=== PATIENT | male | born 1945 | race Caucasian/White ===

== ENCOUNTER → 2019-01-16 10:13 | Outpatient (CLI) | payer MEDICARE, OTHER, SELFPAY ==
--- NOTE | 2019-01-16 | DI.RAD.S_ITS ---
PROCEDURE: XR KNEE RT 3V INDICATIONS: RIGHT KNEE PAIN OSTEOARTHRITIS TECHNIQUE: 3 views of the knee were acquired. COMPARISON: None. FINDINGS: Bones: No fractures or dislocations but there is a moderately severe degree of degenerative change at the right knee, most prominent at the lateral facet of the patellofemoral joint and moderately severe at the lateral compartment of the knee. The medial compartment shows mild degenerative osteoarthritic joint space thinning. No suspicious bony lesions. Soft tissues: No joint effusion. No suspicious soft tissue calcifications. IMPRESSION: No trauma found that there is severe arthritis at the patellofemoral joint lateral compartment, and moderately severe degeneration at the lateral compartment of the right knee on the frontal weight bearing view. Dictated by: Tashi Millard M.D. on 01/16/2019 at 11:26 Approved by: Tashi Millard M.D. on 01/16/2019 at 11:28
== END ==
PROVIDERS: Family Provider Orthopaedic Surgery; PCP Internal Medicine; Visit Provider Internal Medicine
DX: M17.11 Unilateral primary osteoarthritis, right knee (principal); M25.561 Pain in right knee
CPT/HCPCS: 73562

== ENCOUNTER → 2023-06-20 16:54 | Outpatient (CLI) | payer MEDICARE, OTHER, SELFPAY ==
--- NOTE | 2023-06-20 16:56 | DI.RAD.S_ITS ---
PROCEDURE: XR SINUS MIN 3V INDICATIONS: right max sinus region pain-opacity?, bladder CA-met? TECHNIQUE: 3 views of the sinuses were acquired. COMPARISON: None. FINDINGS: Sinuses: The visualized sinuses demonstrate no air-fluid levels or mucosal thickening. The visualized mastoids also appear clear. Bones: No suspicious bony lesions. Nasal septum is midline. IMPRESSION: Visualized sinuses demonstrate normal aerated appearance. If clinical concerns persist, consider CT. Dictated by: Abdulaziz JEFFERY Interpreted: Finesse Medel MD on 06/20/2023 at 20:24 Approved by: Finesse Medel M.D. on 06/21/2023 at 10:29
== END ==
PROVIDERS: Family Provider Orthopaedic Surgery; PCP Internal Medicine; Referring Provider Pediatrics; Visit Provider Pediatrics
DX: R51.9 Headache, unspecified (principal); T78.40XA Allergy, unspecified, initial encounter
CPT/HCPCS: 70220

== ENCOUNTER 2025-05-16 19:26 | Emergency (ER) | payer MEDICARE, OTHER, SELFPAY ==
[2025-05-16 19:37] VITALS: BP 112/66; PULSE 85; RESP 17; TEMP 37.6; O2SAT 93; BMI 29.8
--- NOTE | 2025-05-16 19:43 | DI.RAD.S_ITS ---
PROCEDURE: XR CHEST 1V INDICATIONS: Shortness of breath TECHNIQUE: One view of the chest was acquired. COMPARISON: None. FINDINGS: Surgical changes and devices: Right chest wall port tip projects over the low SVC. Lungs and pleura: Hazy left basilar opacity. Mediastinum: Mediastinal contours appear normal. Heart size is enlarged. Bones and chest wall: No suspicious bony lesions. Overlying soft tissues appear unremarkable. IMPRESSION: Hazy left basilar opacity, either atelectasis, infection or aspiration. Dictated by: Cosme Aguilera M.D. on 05/16/2025 at 20:57 Approved by: Cosme Aguilera M.D. on 05/16/2025 at 20:58
--- NOTE | 2025-05-16 19:43 | EKG_ITS ---
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
[2025-05-16 20:04] LABS: Add Manual Diff / Slide Review NO; Hematocrit 36.7 % (41-53); Hemoglobin 12.4 g/dL (13.5-17.5); Lymphocytes Absolute Auto 1400 /uL (1100-4500); Mean Corpuscular HGB Conc 33.9 % (30-36); Mean Corpuscular Hemoglobin 30.2 PG (26-34); Mean Corpuscular Volume 89.2 fL (80-100); Platelet Count 239 X10^3/uL (150-400)
[2025-05-16 20:11] LABS: INR 1.1 (0.9-1.3); Prothrombin Time 11.9 SECONDS (9.4-12.5)
[2025-05-16 20:15] LABS: Alanine Aminotransferase 23 IU/L (<50); Albumin 4.5 g/dL (3.5-5.0); Albumin Globulin Ratio 1.6 (1.0-2.8); Alkaline Phosphatase 49 U/L (38-126); Blood Urea Nitrogen 21 mg/dL (9-20); Calcium 8.9 mg/dL (8.4-10.2); Carbon Dioxide 25 mmol/L (22-32); Chloride 98 mmol/L (98-107); Estimated Glomerular Filt Rate > 60 mL/min (>60); Globulin 2.9 g/dL (1.7-4.1); Glucose 79 mg/dL (70-99); HEMOLYSIS < 15 (0-50); Lactate (Lactic Acid) 0.9 mmol/L (0.7-2.1); Potassium 4.5 mmol/L (3.4-5.1); Sodium 134 mmol/L (137-145); Total Protein 7.4 g/dL (6.3-8.2)
[2025-05-16 20:27] LABS: NT-proBNP (BNP-Adult 18+) < 20 pg/mL (<450); Troponin I < 0.012 ng/mL (0.01-0.034)
[2025-05-16 23:30] VITALS: BP 127/83
[2025-05-16 23:32] VITALS: PULSE 91; RESP 16; O2SAT 95
[2025-05-17] VITALS (7 sets, daily range): BP systolic 120–124; BP diastolic 74–76; PULSE 88–97; RESP 16–20; O2SAT 93–94
--- NOTE | 2025-05-17 00:13 | ED.GENADULT ---
HPI - General Adult General Chief complaint: Shortness of Breath/Dyspnea Stated complaint: Pain in chest, Pain in LT lung, fever 100.9 Time Seen by Provider: 05/16/25 19:50 Source: patient Mode of arrival: Ambulatory History of Present Illness HPI narrative: 79-year-old male with history of bladder cancer, status post recent prostate surgery Monday 4 days ago by urology [place], no known coronary artery disease, no known blood clots to legs or lungs in the past, complains of left anterior chest discomfort. Denies recent cough fevers or chills. Denies leg pain or swelling symptoms. Related Data Home Medications ?Medication ?Instructions ?Recorded ?Confirmed metformin 500 mg tablet,extended 500 mg PO DAILY 08/17/22 12/05/24 release 24 hr tamsulosin 0.4 mg capsule 0.4 mg PO BEDTIME 08/17/22 12/05/24 ivermectin 6 mg tablet 12 mg PO QWEEK 09/05/22 12/05/24 albendazole 200 mg tablet 200 mg PO DAILY 11/29/23 12/05/24 hydrochlorothiazide 12.5 mg tablet mg PO DAILY 12/05/24 12/05/24 Previous Rx's ?Medication ?Instructions ?Recorded lisinopril 20 mg tablet 20 mg PO DAILY #90 tabs 12/05/24 cefdinir 300 mg capsule 300 mg PO BID 10 days #20 caps 05/17/25 doxycycline hyclate 100 mg tablet 100 mg PO BID #20 tabs 05/17/25 Allergies Allergy/AdvReac Type Severity Reaction Status Date / Time No Known Drug Allergies Allergy Verified 12/05/24 16:29 Patient History Medical History (Updated 05/17/25 @ 02:12 by Yoandy Rivas MD) Essential hypertension Right facial pain Asthma (~1992) Allergies (~1952) Measles (~1948) Chicken pox (~1949) Cataracts, bilateral (~2016) Frequent UTI Colon polyps (~2010) History of colonic polyps Elevated blood pressure reading without diagnosis of hypertension Coronary atherosclerosis Bladder cancer (~2020) BPH w urinary obs/LUTS Mixed hyperlipidemia Surgical History Anesthesia History of cataract removal with insertion of prosthetic lens History of tonsillectomy (~1952) S/P arthroscopic surgery of left knee (~1988) S/P TURP Family History Father Lymphoma Hypertension Grandmother Breast cancer Social History Smoking Status: Former smoker Smoking Status: Former smoker Exam Narrative Exam Narrative: GENERAL: Well-developed patient, in mild distress. HEAD: Atraumatic. Normocephalic. EYES: Pupils equal round and reactive. Extraocular motions intact. No scleral icterus. No injection or drainage. ENT: Nose without bleeding, purulent drainage. Throat without erythema, tonsillar hypertrophy or exudate. Airway patent. NECK: Trachea midline. Non tender CARDIOVASCULAR: Regular rate and rhythm without murmurs, gallops, or rubs. RESPIRATORY: Clear to auscultation. Breath sounds equal bilaterally. Left basilar rhonchi, no wheezing. No retractions, speaks in full sentences. GASTROINTESTINAL: Abdomen soft, non-tender, nondistended. EXTREMITIES: No edema or joint tenderness. BACK: Nontender without deformity or crepitance. No flank tenderness. NEURO: AOx3. Motor functions grossly nonfocal. SKIN: No rash or erythema of visible areas Initial Vital Signs Initial Vital Signs: Vital Signs Temperature 99.6 F 05/16/25 19:37 Pulse Rate 85 05/16/25 19:37 Respiratory Rate 17 05/16/25 19:37 Blood Pressure 112/66 05/16/25 19:37 Pulse Oximetry 93 05/16/25 19:37 Oxygen Delivery Method Room Air 05/16/25 19:37 Course Orders Ordered: ED Orders 05/16/25 19:43 XR chest 1V Stat EKG-12 Lead Stat Measure peak expiratory flow STAT RT Consult Eval and Treat STAT 05/16/25 19:55 Complete Blood Count AUTO DIFF Stat Comprehensive Metabolic Panel Stat Lactate (Lactic Acid) Stat NT-proBNP (BNP-Adult 18+) Stat Prothrombin Time INR Stat Troponin I Stat 05/17/25 00:07 Urine Culture Stat Urine Microscopic Stat 05/17/25 00:08 Covid-19 + FLU A/B + RSV - PCR Stat 05/17/25 01:01 Trop I [Troponin I] Stat 05/17/25 01:07 Blood Culture Stat Discontinued Medications Doxycycline Hyclate (Doxycycline Hyclate 100 Mg Tablet) 100 mg PO NOW ONE Stop: 05/17/25 00:43 Last Admin: 05/17/25 00:54 Dose: 100 mg Documented By: DIYA Ceftriaxone Sodium 1,000 mg/ (Sodium Chloride) 100 mls @ 200 mls/hr IV NOW ONE Stop: 05/17/25 00:24 Last Infusion: 05/17/25 01:17 Dose: Infused Documented By: Admin: 05/17/25 00:37 Dose: 200 mls/hr Documented By: DIYA Vital Signs Vital signs: Vital Signs - 8 hr 05/16/25 23:30 05/16/25 23:32 05/17/25 00:09 Pulse Rate 91 H 94 H Respiratory Rate 16 Blood Pressure 127/83 Pulse Oximetry 95 94 Oxygen Delivery Method 05/17/25 00:10 05/17/25 00:10 05/17/25 00:30 Pulse Rate 93 H 97 H Respiratory Rate 20 Blood Pressure 120/76 Pulse Oximetry 94 93 Oxygen Delivery Method 05/17/25 01:00 05/17/25 01:15 05/17/25 02:17 Pulse Rate 90 88 Respiratory Rate Blood Pressure 124/74 Pulse Oximetry 94 94 Oxygen Delivery Method Room Air 05/17/25 02:18 Pulse Rate 93 H Respiratory Rate 16 Blood Pressure Pulse Oximetry 94 Oxygen Delivery Method Medical Decision Making Lab Data Lab results reviewed: Yes I reviewed the patient's lab results. Lab results narrative: White blood cell count 26813, hemoglobin 12.4, platelets 239,000. Glucose 79. BUN 21 with creatinine 0.97 normal renal function. Serum CO2 25 with normal potassium and slightly low sodium 134. Liver functions normal. BNP normal not measurable less than 20. 05/16/25 19:55 05/16/25 19:55 Labs: Lab Results 05/16/25 05/17/25 05/17/25 Range/Units 19:55 00:07 00:08 WBC 11.8 H (4.5-11.0) X10^3/uL RBC 4.12 L (4.5-5.9) X10^6/uL Hgb 12.4 L (13.5-17.5) g/dL Hct 36.7 L (41-53) % MCV 89.2 (80-100) fL MCH 30.2 (26-34) PG MCHC 33.9 (30-36) % RDW 17.1 H (11.6-14.8) % Plt Count 239 (150-400) X10^3/uL Neut % (Auto) 68.0 (50-75) % Lymph % (Auto) 12.0 L (25-40) % [place] % (Auto) 15.8 H (3-14) % Eos % (Auto) 3.6 (2-4) % Baso % (Auto) 0.6 (0-2) % Neut # (Auto) 8000 H (7981-9016) /uL Lymph # (Auto) 1400 (8109-3518) /uL [place] # (Auto) 1900 H (0-900) /uL Eos # (Auto) 400 (0-450) /uL Baso # (Auto) 100 (0-100) /uL PT 11.9 (9.4-12.5) SECONDS INR 1.1 (0.9-1.3) Sodium 134 L (137-145) mmol/L Potassium 4.5 (3.4-5.1) mmol/L Chloride 98 (98-107) mmol/L Carbon Dioxide 25 (22-32) mmol/L BUN 21 H (9-20) mg/dL Creatinine 0.97 (0.66-1.25) mg/dL Estimated GFR > 60 (>60) mL/min BUN/Creatinine Ratio 21.6 (6-22) Glucose 79 (70-99) mg/dL Lactate 0.9 (0.7-2.1) mmol/L Calcium 8.9 (8.4-10.2) mg/dL Total Bilirubin 0.2 (0.2-1.3) mg/dL AST 32 (17-59) IU/L ALT 23 (<50) IU/L Alkaline Phosphatase 49 (38-126) U/L Troponin I < 0.012 (0.01-0.034) ng/mL NT-Pro-B Natriuret Pep < 20 (<450) pg/mL Total Protein 7.4 (6.3-8.2) g/dL Albumin 4.5 (3.5-5.0) g/dL Globulin 2.9 (1.7-4.1) g/dL Albumin/Globulin Ratio 1.6 (1.0-2.8) Urine RBC None seen (0-5/HPF) Urine WBC 5-10/hpf H (0-5/HPF) Ur Squamous Epith Cells 0-1 /hpf (0-5/HPF) Urine Bacteria Few (2-10) H (None) Ur Culture Indicated? Specimen cultured Vol Urine Centrifuged 10ml (spun) SARS-CoV-2 (PCR) Negative (Negative) Influenza A (RT-PCR) Flu a negative (NEGATIVE) Influenza B (RT-PCR) Flu b negative (NEGATIVE) RSV (PCR) Negative (Negative) 05/17/25 Range/Units 01:01 WBC (4.5-11.0) X10^3/uL RBC (4.5-5.9) X10^6/uL Hgb (13.5-17.5) g/dL Hct (41-53) % MCV (80-100) fL MCH (26-34) PG MCHC (30-36) % RDW (11.6-14.8) % Plt Count (150-400) X10^3/uL Neut % (Auto) (50-75) % Lymph % (Auto) (25-40) % [place] % (Auto) (3-14) % Eos % (Auto) (2-4) % Baso % (Auto) (0-2) % Neut # (Auto) (6944-8422) /uL Lymph # (Auto) (0318-0351) /uL [place] # (Auto) (0-900) /uL Eos # (Auto) (0-450) /uL Baso # (Auto) (0-100) /uL PT (9.4-12.5) SECONDS INR (0.9-1.3) Sodium (137-145) mmol/L Potassium (3.4-5.1) mmol/L Chloride (98-107) mmol/L Carbon Dioxide (22-32) mmol/L BUN (9-20) mg/dL Creatinine (0.66-1.25) mg/dL Estimated GFR (>60) mL/min BUN/Creatinine Ratio (6-22) Glucose (70-99) mg/dL Lactate (0.7-2.1) mmol/L Calcium (8.4-10.2) mg/dL Total Bilirubin (0.2-1.3) mg/dL AST (17-59) IU/L ALT (<50) IU/L Alkaline Phosphatase (38-126) U/L Troponin I < 0.012 (0.01-0.034) ng/mL NT-Pro-B Natriuret Pep (<450) pg/mL Total Protein (6.3-8.2) g/dL Albumin (3.5-5.0) g/dL Globulin (1.7-4.1) g/dL Albumin/Globulin Ratio (1.0-2.8) Urine RBC (0-5/HPF) Urine WBC (0-5/HPF) Ur Squamous Epith Cells (0-5/HPF) Urine Bacteria (None) Ur Culture Indicated? Vol Urine Centrifuged SARS-CoV-2 (PCR) (Negative) Influenza A (RT-PCR) (NEGATIVE) Influenza B (RT-PCR) (NEGATIVE) RSV (PCR) (Negative) Urine Dip Bedside Urine Glucose Negative Bedside Urine Bilirubin - Negative Bedside Urine Ketone +/- 5 Urine Specific [place] 1.015 Bedside Urine Occult Blood - Negative Bedside Urine pH 5.5 Bedside Urine Protein + 30 Bedside Urine Urobilinogen - Negative Bedside Urine Nitrite - Negative Bedside Urine Leukocytes + 70 Esterase Point of care testing: Urine Dip Bedside Urine Glucose Negative Bedside Urine Bilirubin - Negative Bedside Urine Ketone +/- 5 Urine Specific [place] 1.015 Bedside Urine Occult Blood - Negative Bedside Urine pH 5.5 Bedside Urine Protein + 30 Bedside Urine Urobilinogen - Negative Bedside Urine Nitrite - Negative Bedside Urine Leukocytes + 70 Esterase ECG Data Attestation: I personally reviewed and interpreted this ECG as follows: Interpretation: 194, normal sinus rhythm with a rate of 90, right bundle branch block. NV 194, QRS 130, QTC 462. MDM Narrative Medical decision making narrative: 79-year-old male with history of bladder cancer, status post recent prostate surgery 4 days ago, with left anterior chest discomfort. No cough or shortness of breath. No leg pain or swelling symptoms. Afebrile, sirs screen negative. No respiratory distress. Slight crackles left base on exam noted. Chest x-ray shows hazy patches, atelectasis versus infiltrate. See radiology report. Left basilar crackles, we will treat for pneumonia. IV ceftriaxone and oral doxycycline. Lab data: White blood cell count 82540, hemoglobin 12.4, platelets 239,000. Glucose 79. BUN 21 with creatinine 0.97 normal renal function. Serum CO2 25 with normal potassium and slightly low sodium 134. Liver functions normal. BNP normal not measurable less than 20. Recent surgery with left-sided chest pain. Consider PE evaluation. Did not send D-dimer given recent surgical interventions likely would be positive. Offered CT angiogram testing, patient declined at this time. No leg pain or swelling symptoms. No sinus tachycardia or oxygen requirement. Urinalysis eventually obtained, possible infection, some bacteria, some inflammatory changes, urine culture requested. Ceftriaxone should cover. Patient be discharged on cefdinir and doxycycline, cefdinir should cover urinary pathogens well, otherwise coverage for community-acquired pneumonia for now. Recheck advised with PCP lung exam in respiratory symptoms. Further chest pain workup as an outpatient for now, though patient seems to have infectious likely etiology at this time. Follow up with Urology plan postoperatively later this week. Discharged home with family. Return precautions discussed. Discharge Plan Departure Patient Disposition: Home Clinical Impression: Pneumonia, Chest pain, Urinary tract infection Activity Restrictions/Additional Instructions: Left-sided chest pain, recent prostate surgery. EKG and serial blood tests not suggestive of heart attack changes at this time. We discussed possibility of blood clots to the lungs, we discussed CT scan angiogram of the chest, this test was declined for now. Left basilar crackles noted on examination. Chest x-ray felt to have some haziness on reading from Radiology report. Consider pneumonia. IV ceftriaxone and oral doxycycline antibiotics initiated. Further prescriptions for cefdinir and doxycycline antibiotics sent to your pharmacy. Follow up with Urology later this week as planned. Cefdinir is quite effective for urinary tract infection changes. Urinalysis did show some small amount of bacteria and inflammatory cells. Urine culture was additionally requested and pending at this time. Take antibiotics as prescribed for pneumonia and possible urine infection. Drink plenty of fluids. Tylenol and or Motrin as needed for discomfort. Continue your chronic medications for now. Recheck with your urologist later this week as planned. Regarding chest discomfort recheck with your regular provider early next week, for auscultation of your lungs and also to see if any further cardiopulmonary evaluation is necessary at that time. Return earlier to this/nearest emergency department for any change worsening symptoms or any concerns prior. Prescriptions: New cefdinir 300 mg capsule 300 mg PO BID 10 Days Qty: 20 0RF doxycycline hyclate 100 mg tablet 100 mg PO BID Qty: 20 0RF No Action metformin 500 mg tablet extended release 24 hr 500 mg PO DAILY tamsulosin 0.4 mg capsule 0.4 mg PO BEDTIME Patient Comments: TAKE 1 CAPSULE BY MOUTH EVERY DAY FOR 30 DAYS ivermectin 6 mg tablet 12 mg PO QWEEK albendazole 200 mg tablet 200 mg PO DAILY hydrochlorothiazide 12.5 mg tablet PO DAILY lisinopril 20 mg tablet 20 mg PO DAILY Qty: 90 3RF Referrals: Ishmael Blackmon MD [Primary Care Provider, Internal Medicine] Stand Alone Forms: Patient Portal/API
--- NOTE | 2025-05-17 00:19 | PC.NURSE ---
pt/family concerned for UTI due to low grade fever and recent TURP, wanted urine sample to be ran/POC done.
[2025-05-17 00:33] LABS: Culture Indicated Urine Specimen Cultured
[2025-05-17] MEDS: DOXYCYCLINE HYCLATE 100 MG TABLET PO (00:54)
[2025-05-17 01:02] LABS: Influenza A - CEPHEID Flu A NEGATIVE (NEGATIVE); Influenza B - CEPHEID Flu B NEGATIVE (NEGATIVE)
[2025-05-17 01:09] LABS: COVID-19 CEPHEID 4-PLEX PCR Negative (Negative)
[2025-05-17 01:54] LABS: Troponin I < 0.012 ng/mL (0.01-0.034)
== END 2025-05-17 02:24 | disposition home or self-care (01) ==
PROVIDERS: Emergency Provider Emergency Medicine; Family Provider Orthopaedic Surgery; PCP Internal Medicine
DX: J18.9 Pneumonia, unspecified organism (principal); R07.9 Chest pain, unspecified; N39.0 Urinary tract infection, site not specified; Z87.891 Personal history of nicotine dependence
CPT/HCPCS: 36415; 71045; 80053; 81003; 81015; 83605; 83880; 84484; 85025; 85610; 87040; 87086; 87637; 93005; 96365; 99284; J0696